=== PATIENT | male | born 1950 | race Caucasian/White ===

== ENCOUNTER 2020-01-24 06:00 | Day surgery (SDC) | payer MEDICARE, OTHER ==
[~2020-01-24] VITALS: Ht 172.7 cm; Wt 105.2 kg
[~2020-01-24 06:00] MED LIST: ASPIR-LOW81 MG PO; ASPIRIN325 MG PO; ATORVASTATIN CA40 MG PO; DICLOFENAC SODI75 MG PO; GABAPENTIN300 MG PO; HYDROCODON-ACE1 EA10 PO; IBUPROFEN200 M1 PO; NORCO 5-325 TA1 EACH PO; OXYCODONE HCL5 MG PO
[2020-01-24] MEDS ORDERED: HYDROCODON-ACE1 EA10 PO (07:43)
--- NOTE | 2020-01-24 08:29 | NUR ---
PT IS ALERT, ORIENTED AND SEEMS COMFORTABLE. PT HAS HAD THIS SURGERY PREVIOUS. ALL QUESTIONS ASKED, ANSWERED. PT DECLINED PRAYER, WILL FOLOW
--- NOTE | 2020-01-24 08:29 | NUR ---
01/24/20 0829 Deanne Richardson 0824- PT TO PACU IN SUPINE POSITION. EYES OPEN FOLLOWS COMMANDS. DENIES PAIN NAUSEA OR DIZZINESS. BREATHING EASY AND UNLABORED. ON 10 L O2 VIA SIMPLE MASK. SPO2 100% 0828- ICE APPLIED TO EXTREMITY. O2 TITRATED DOWN TO ROOM AIR. PT REPORTS HE FEEL COMFORTABLE. PLAN OF CARE DISCUSSED WITH PATIENT. VSS. SPO2 >95%.
--- NOTE | 2020-01-24 12:14 | OR ---
[facility] [address] [place], [place] [address] Signed DATE OF OPERATION: 01/24/2020 SURGEON: Lynn Smith MD PREOPERATIVE DIAGNOSIS: Carpal tunnel syndrome, right. POSTOPERATIVE DIAGNOSIS: Carpal tunnel syndrome, right. PROCEDURE PERFORMED: Carpal tunnel release, right. CARGO SERVICE SUPERVISOR: Shira MILLIGAN. ANESTHESIA: Hale block. TOURNIQUET TIME: 20 minutes. BRIEF HISTORY: Alejo is a 69-year-old gentleman with significant carpal tunnel by symptomatology and nerve conduction studies. Risks and benefits of operative treatment were discussed with him. He elected to proceed. DESCRIPTION OF PROCEDURE: Once consent was obtained, he was taken to the operating room. After adequate anesthesia, he was placed on operating room table. All downside pressure points were well padded. The arm was prepped and draped in a standard sterile fashion. After establishment of the Hugo block, the anesthesia was then checked and found to be adequate. A 1.5 cm incision was made in the distal wrist crease, carried through skin and subcutaneous tissue. This was taken down to the palmaris longus tendon, which was quite robust. This was dissected free of underlying soft tissue and mobilized. The transverse carpal ligament was then identified under loupe magnification and was released proximally 1 cm, we then cleared it off distally and released it to the distal extent. This was palpated using a [place] and found to be completely released. The wound was copiously irrigated with antibiotic solution, closed with 3-0 nylon, injected with 6 mL Electronically Signed By: LYNN SMITH MD 01/24/20 1214 PATIENT NAME: ALEJO SANCHES OPERATIVE REPORT DATE OF : 54 REPORT #: [id number] PHYSICIAN: LYNN SMITH MD PCP: EMA VALENZUELA MD REPORT IS CONFIDENTIAL AND NOT TO BE RELEASED WITHOUT AUTHORIZATION [facility] [address] [place], [place] [address] Signed 0.25% plain Marcaine. The wound was dressed with bacitracin, Adaptic, 4 x 8s, and gauze. He tolerated the procedure well. All sponge, needle, and instrument counts were correct. Lynn Smith MD BA/MODL /[id number] Copies: ~ Electronically Signed By: LYNN SMITH MD 01/24/20 1214 PATIENT NAME: ALEJO SANCHES OPERATIVE REPORT DATE OF : 54 REPORT #: [id number] PHYSICIAN: LYNN SMITH MD PCP: EMA VALENZUELA MD REPORT IS CONFIDENTIAL AND NOT TO BE RELEASED WITHOUT AUTHORIZATION
== END 2020-01-24 08:55 | disposition home or self-care (01) ==
LOC: DS 06:00 → OPS 06:00 → DS 08:00
PROVIDERS: Specialist
PROC: 01N50ZZ Release Median Nerve, Open Approach (ICD-10-PCS; principal; 2020-01-24 08:00)
DX: G56.01 Carpal tunnel syndrome, right upper limb (principal); K21.9 Gastro-esophageal reflux disease without esophagitis; E66.01 Morbid (severe) obesity due to excess calories; Z79.899 Other long term (current) drug therapy; Z79.82 Long term (current) use of aspirin; Z68.35 Body mass index [BMI] 35.0-35.9, adult
CPT/HCPCS: 01810; J0690; J1100; J1885; J2250; J2405; J2704; J2765; J3010; J7121